=== PATIENT | male | born 2000 | race Caucasian/White ===

== ENCOUNTER 2018-07-17 12:14 | Emergency (ER) | payer OTHER ==
[2018-07-17 12:48] VITALS: BP 145/80; PULSE 99; TEMP 98.8; BMI 29.9
--- NOTE | 2018-07-17 14:48 | PDOC ---
History of Present Illness - General Chief Complaint: Rash Stated Complaint: ALLERGIC REACTION Time Seen by Provider: 07/17/18 14:31 History Source: Patient Exam Limitations: Clinical Condition - History of Present Illness Initial Comments: 07/17/18 14:50 Patient with no significant past medical history present with complaint of diffuse red rash and itching for over 2 weeks now. Patient reported rash started in the bilateral hands and has spread throughout the body. Patient did not take anything for symptoms. Patient denies any other symptoms. Timing/Duration: other (2 weeks) Past History - Past Medical History Allergies/Adverse Reactions: Allergies Allergy/AdvReac Type Severity Reaction Status Date / Time No Known Allergies Allergy Verified 06/18/12 16:38 Home Medications: Ambulatory Orders No Home Medications 0 dose .ROUTE UTDICT 06/18/12 Famotidine [Pepcid] 20 mg PO BID 5 Days #10 tablet 07/17/18 Hydrocortisone 2.5% Lotion [Hytone 2.5% Lotion -] 1 applic TP BID #1 bottle 09/30 predniSONE [Deltasone -] 20 mg PO BID 5 Days #10 tablet 07/17/18 COPD: No Thyroid Disease: No - Immunization History Immunization Up to Date: Yes - Suicide/Smoking/Psychosocial Hx Smoking Status: No Smoking History: Never smoked Number of Cigarettes Smoked Daily: 0 Hx Alcohol Use: No Drug/Substance Use Hx: No Review of Systems - Review of Systems Able to Perform ROS?: Yes Is the patient limited Armenian proficient: No Constitutional: No: Fever, Malaise, Weakness HEENTM: No: Blurred Vision, Recent change in vision Respiratory: No: Symptoms reported Cardiac (ROS): No: Symptoms Reported ABD/GI: No: Symptoms Reported Integumentary: Yes: Flushing (intermittent), Pruritus, Rash (global) All Other Systems: Reviewed and Negative *Physical Exam - Vital Signs Last Vital Signs Temp Pulse Resp BP Pulse Ox 98.8 F 99 H 16 145/80 98 07/17/18 12:46 07/17/18 12:46 07/17/18 12:46 07/17/18 12:46 07/17/18 12:46 - Physical Exam Comments: 07/17/18 14:52 GENERAL: Well developed, well nourished. Awake and alert. No acute distress. HEENT: Normocephalic, atraumatic. PERRLA, EOMI. No conjunctival pallor. Sclera are non-icteric. Moist mucous membranes. Oropharynx is clear. NECK: Supple. Full ROM. CARDIOVASCULAR: Regular rate and rhythm. No murmurs, rubs, or gallops. Distal pulses are 2+ and symmetric. PULMONARY: No evidence of respiratory distress. Lungs clear to auscultation bilaterally. No wheezing, rales or rhonchi. ABDOMINAL: Soft. Non-tender. Non-distended. No rebound or guarding. No organomegaly. Normoactive bowel sounds. MUSCULOSKELETAL Normal range of motion at all joints. EXTREMITIES: No cyanosis. No clubbing. No edema. SKIN: Diffuse erythematous rash all over the body without excoriations. Warm and dry. Normal capillary refill. NEUROLOGICAL: Alert, awake, appropriate. Gait is normal without ataxia. PSYCHIATRIC: Cooperative. Good eye contact. Appropriate mood General Appearance: Yes: Nourished, Appropriately Dressed. No: Apparent Distress Moderate Sedation - Procedure Monitoring Vital Signs: Procedure Monitoring Vital Signs Temperature 98.8 F 07/17/18 12:46 Pulse Rate 99 H 07/17/18 12:46 Respiratory Rate 16 07/17/18 12:46 Blood Pressure 145/80 07/17/18 12:46 O2 Sat by Pulse Oximetry (%) 98 07/17/18 12:46 Medical Decision Making - Medical Decision Making 07/17/18 14:54 Patient with no significant past medical history present with complaint of diffuse red rash and itching for over 2 weeks now. Patient reported rash started in the bilateral hands and has spread throughout the body. Patient did not take anything for symptoms. Patient with no significant past medical history present with complaint of diffuse red rash and itching for over 2 weeks now. Patient reported rash started in the bilateral hands and has spread throughout the body. Patient did not take anything for symptoms. *DC/Admit/Observation/Transfer Diagnosis at time of Disposition: Allergic dermatitis - Discharge Dispostion Disposition: HOME Condition at time of disposition: Stable Decision to Admit order: No - Prescriptions Prescriptions: Famotidine [Pepcid] 20 mg PO BID 5 Days #10 tablet Hydrocortisone 2.5% Lotion [Hytone 2.5% Lotion -] 1 applic TP BID #1 bottle predniSONE [Deltasone -] 20 mg PO BID 5 Days #10 tablet - Referrals Referrals: Mary Mcadams MD [Staff Physician] - - Patient Instructions Printed Discharge Instructions: Contact Dermatitis Additional Instructions: Take medications as prescribed. Follow-up referred to dermatology as soon as possible. - Post Discharge Activity Forms/Work/School Notes: Back to Work
== END 2018-07-17 14:57 | disposition home or self-care (01) ==
LOC: JERFT 12:14
DX: L23.9 Allergic contact dermatitis, unspecified cause (principal)
CPT/HCPCS: 99281-25

== ENCOUNTER 2018-07-30 11:47 | Observation (INO) | payer OTHER ==
[2018-07-30 11:56] VITALS: TEMP 97.8; BMI 26.6
--- NOTE | 2018-07-30 12:41 | PDOC ---
*Physical Exam - Vital Signs Last Vital Signs Temp Pulse Resp BP Pulse Ox 97.8 F 75 18 127/63 100 07/30/18 11:51 07/30/18 11:51 07/30/18 11:51 07/30/18 11:51 07/30/18 11:51 Medical Decision Making - Medical Decision Making 07/30/18 12:41 Pt seen by Midlevel Provider under my direct supervision Pt interviewed and examined Ancillary studies reviewed I agree with plan as outlined by Midlevel Provider *DC/Admit/Observation/Transfer - Discharge Dispostion Condition at time of disposition: Stable - Referrals - Patient Instructions - Post Discharge Activity
--- NOTE | 2018-07-30 13:02 | PDOC ---
History of Present Illness - General Chief Complaint: Allergic Reaction Stated Complaint: ALLERGIC REACTION Time Seen by Provider: 07/30/18 12:03 History Source: Patient Exam Limitations: No Limitations - History of Present Illness Initial Comments: 07/30/18 13:05 CHIEF COMPLAINT: Allergic reaction HISTORY OF PRESENT ILLNESS: This is a 18-year-old male with a history of asthma (no hospitalizations since childhood, on albuterol prn), and anxiety/depression (history of inpatient hospitalizations, was taking Zoloft and Seroquel but stopped 3 years ago, has not been symptomatic since). The patient was initially seen here on 07/17 for a rash. He reports that the rash began on the soles of his feet. He then noted it on the palms of his hands. The rash then became generalized. At that time, he did not have any respiratory or ENT involvement. He was seen here and started on hydrocortisone cream, low-dose prednisone, and famotidine. The rash has resolved. However yesterday, he began experiencing lip swelling and throat tightness. He reports that he had hoarse voice and was sent home from work because he was unable to speak clearly. He had difficulty breathing overnight. He denies any wheezing or shortness of breath at present. He took his prednisone and famotidine this morning. The patient denies any new medications, foods, or detergents. PCP: None Smoking: E-cigarettes Alcohol: Occasional Drugs: None Lives alone. Works as [employer]. REVIEW OF SYSTEMS: GENERAL/CONSTITUTIONAL: No fever or chills. No weakness. No weight change. HEAD, EYES, EARS, NOSE AND THROAT: Lip swelling, throat tightness, hoarse voice (improving). CARDIOVASCULAR: No chest pain or palpitations. RESPIRATORY: No cough, wheezing, or shortness of breath. Dyspnea overnight ( resolved). GASTROINTESTINAL: No nausea, vomiting, diarrhea or constipation. GENITOURINARY: No dysuria, frequency, or change in urination. MUSCULOSKELETAL: No joint or muscle swelling or pain. No neck or back pain. SKIN: No rash or easy bruising. NEUROLOGIC: No headache, vertigo, loss of consciousness, or loss of sensation. PSYCHIATRIC: "Emotional" at times, denies SI/HI/AH/VH. ENDOCRINE: No increased thirst. No abnormal weight change. HEMATOLOGIC/LYMPHATIC: No anemia, easy bleeding, or history of blood clots. ALLERGIC/IMMUNOLOGIC: See HPI. PHYSICAL EXAM: GENERAL: The patient is awake, alert, and fully oriented, in no acute distress. HEAD: Normal with no signs of trauma. ENT: Angioedema of lips, mild uvular edema. No tongue edema. No stridor. Able to swallow own secretions. Difficulty enunciating because of lip swelling, but no voice hoarseness. LUNGS: Clear to auscultation bilaterally. Normal excursion. No respiratory distress or use of accessory muscles. CV: RRR, S1/S2, no MRG. Cap refill < 2 sec. ABDOMEN: Soft, non-distended, non-tender. EXTREMITIES: Normal range of motion, no edema. NEUROLOGICAL: Normal speech, normal gait. CN II-XII grossly intact. PSYCH: Normal mood, normal affect. SKIN: Warm, dry, normal turgor, no rashes or lesions noted including palms/ soles. 07/30/18 13:27 Past History - Past Medical History Allergies/Adverse Reactions: Allergies Allergy/AdvReac Type Severity Reaction Status Date / Time No Known Allergies Allergy Verified 06/18/12 16:38 Home Medications: Ambulatory Orders No Home Medications 0 dose .ROUTE UTDICT 06/18/12 Famotidine [Pepcid] 20 mg PO BID 5 Days #10 tablet 07/17/18 Hydrocortisone 2.5% Lotion [Hytone 2.5% Lotion -] 1 applic TP BID #1 bottle 09/30 predniSONE [Deltasone -] 20 mg PO BID 5 Days #10 tablet 07/17/18 COPD: No Thyroid Disease: No - Surgical History Cholecystectomy: No - Immunization History Immunization Up to Date: Yes - Suicide/Smoking/Psychosocial Hx Smoking Status: No Smoking History: Never smoked Have you smoked in the past 12 months: No Number of Cigarettes Smoked Daily: 0 Information on smoking cessation initiated: No Hx Alcohol Use: No Drug/Substance Use Hx: No *Physical Exam - Vital Signs Last Vital Signs Temp Pulse Resp BP Pulse Ox 97.8 F 75 18 127/63 100 07/30/18 11:51 07/30/18 11:51 07/30/18 11:51 07/30/18 11:51 07/30/18 11:51 Moderate Sedation - Procedure Monitoring Vital Signs: Procedure Monitoring Vital Signs Temperature 97.8 F 07/30/18 11:51 Pulse Rate 75 07/30/18 11:51 Respiratory Rate 18 07/30/18 11:51 Blood Pressure 127/63 07/30/18 11:51 O2 Sat by Pulse Oximetry (%) 100 07/30/18 11:51 ED Treatment Course - LABORATORY CBC & Chemistry Diagram: 07/30/18 13:15 07/30/18 13:15 Medical Decision Making - Medical Decision Making 07/30/18 13:16 A/P: 18-year-old male on prednisone for ALLERGIC dermatitis, presenting with angioedema. Maintaining airway, however with obvious lip swelling and difficulty speaking. 1. Basic labs including CBC, CMP 2. IV Benadryl, Solu-Medrol, Pepcid 3. ENT evaluation - discussed with Dr. Horton who will see patient at 7pm 4. Place in short stay observation 07/30/18 18:28 Developed erythema and pruritis to bilat arms. Will give second dose benadryl. Mildly tachycardic at 108bpm - IV fluids ordered. *DC/Admit/Observation/Transfer Diagnosis at time of Disposition: Angioedema Qualifiers: Encounter type: initial encounter Qualified Code(s): T78.3XXA - Angioneurotic edema, initial encounter - Discharge Dispostion Condition at time of disposition: Guarded Decision to Admit order: Yes - Referrals - Patient Instructions - Post Discharge Activity
[2018-07-30] MEDS ORDERED: methylPREDNISolone NA SUCC 125 MG/2 ML VIAL IVPUSH ONE (13:04)
[2018-07-30] MEDS ORDERED: FAMOTIDINE 20 MG/50 ML IVPB 20 MG/50 ML MG IVPB ONE ×2 (13:04→13:27)
[2018-07-30] MEDS ORDERED: methylPREDNISolone NA SUCC 125 MG/2 ML VIAL ONE ×2 (13:27→13:28)
[2018-07-30 13:31] LABS: BASO % 0.1 % (0-2.0); EOS % 0.2 % (0-4.5); HEMATOCRIT 44.8 % (35.4-49); HEMOGLOBIN 15.6 GM/dL (11.7-16.9); LYMPH % 11.6 % (8-40); MCH 30.5 pg (25.7-33.7); MEAN CELL VOLUME 87.1 fl (80-96); MEAN PLT VOLUME 8.2 fl (7.5-11.1); MONO % 3.3 % (3.8-10.2); NEUT % 84.8 % (42.8-82.8); PLATELET COUNT 269 K/MM3 (134-434); RBC 5.14 M/mm3 (4.00-5.60); RDW 13.3 % (11.9-15.9); WHITE BLOOD COUNT 11.5 K/mm3 (4.0-10.0)
[2018-07-30 14:07] LABS: ALK PHOS 119 U/L (45-117); ANION GAP 5 MMOL/L (8-16); BILIRUBIN,TOTAL 0.5 mg/dL (0.2-1); BLOOD UREA NITROGEN 9 mg/dL (7-18); CALCIUM 9.2 mg/dL (8.5-10.1); CHLORIDE 103 mmol/L (98-107); CO2 29 mmol/L (21-32); CREATININE 0.6 mg/dL (0.55-1.3); GLUCOSE,RANDOM 96 mg/dL (74-106); POTASSIUM 3.8 mmol/L (3.5-5.1); SGOT/AST 14 U/L (15-37); SGPT/ALT 36 U/L (13-61); SODIUM 137 mmol/L (136-145); TOT PROT 7.8 g/dl (6.4-8.2)
[2018-07-30] MEDS ORDERED: SODIUM CHLORIDE 1,000 ML IV STA (18:23)
--- NOTE | 2018-07-30 19:31 | PDOC ---
*Physical Exam - Vital Signs Last Vital Signs Temp Pulse Resp BP Pulse Ox 97.8 F 107 H 18 127/63 97 07/30/18 11:51 07/30/18 18:14 07/30/18 18:14 07/30/18 18:14 07/30/18 18:14 - Physical Exam General Appearance: Yes: Appropriately Dressed. No: Apparent Distress HEENT: positive: Normal Voice, Other (angioedema present to lips. No tongue swelling. Eating without difficulty.) Neck: negative: Stridor Respiratory/Chest: positive: Lungs Clear, Normal Breath Sounds. negative: Respiratory Distress, Accessory Muscle Use Cardiovascular: positive: Regular Rhythm, Regular Rate. negative: Murmur ED Treatment Course - LABORATORY CBC & Chemistry Diagram: 07/30/18 13:15 07/30/18 13:15 - ADDITIONAL ORDERS Additional order review: Laboratory Results 07/30/18 13:15 Sodium 137 Potassium 3.8 Chloride 103 Carbon Dioxide 29 Anion Gap 5 L BUN 9 Creatinine 0.6 Creat Clearance w eGFR > 60 Random Glucose 96 Calcium 9.2 Total Bilirubin 0.5 AST 14 L ALT 36 Alkaline Phosphatase 119 H Total Protein 7.8 Albumin 4.0 07/30/18 13:15 RBC 5.14 MCV 87.1 MCHC 35.0 RDW 13.3 MPV 8.2 Neutrophils % 84.8 H Lymphocytes % 11.6 Monocytes % 3.3 L Eosinophils % 0.2 Basophils % 0.1 - Medications Given in the ED: ED Medications Discontinued Medications Generic Name Dose Route Start Last Admin Trade Name Wilsonq PRN Reason Stop Dose Admin Diphenhydramine HCl 25 mg 07/30/18 13:04 07/30/18 13:46 Benadryl Injection - IVPUSH 07/30/18 13:05 25 mg ONCE ONE Administration Diphenhydramine HCl 25 mg 07/30/18 18:29 07/30/18 18:36 Benadryl Injection - IVPUSH 07/30/18 18:30 25 mg ONCE ONE Administration Famotidine/Sodium Chloride 20 mg in 50 mls @ 100 mls/hr 07/30/18 13:04 14:02 Pepcid 20 Mg Premixed Ivpb - IVPB 07/30/18 13:33 100 mls/hr ONCE ONE Administration Sodium Chloride 1,000 mls @ 1,000 mls/hr 07/30/18 18:23 07/30/18 18:30 Normal Saline - IV 07/30/18 19:22 1,000 mls/hr ASDIR STA Administration Methylprednisolone Sodium Succinate 125 mg 07/30/18 13:04 07/30/18 13:46 Solu-Medrol - IVPUSH 07/30/18 13:05 125 mg ONCE ONE Administration Progress Note - Progress Note Progress Note: Received signout from nurse practitioner Frances. Briefly this is a 18-year-old male with history of asthma and anxiety with angioedema. Patient had a rash which started on 07/17 started on soles of his feet and palms of his hands which is now progressed to a generalized rash. Patient was started on hydrocortisone and prednisone began to experience low swelling and throat tightness starting on 07/29. Patient has received IV Benadryl, IV Solu-Medrol and IV Pepcid. Patient is currently pending ENT evaluation with Dr. Horton. Medical Decision Making - Medical Decision Making 07/30/18 20:09 Case has been discussed with Dr. Horton of otolaryngology who recommends discharge patient now with ENT follow-up in the next couple of weeks. Results of the exam is been discussed with the patient was verbalized understanding. Patient states he does not have a primary doctor so we'll give her referral for [facility]. I'll discharge the patient home with a course of steroids, antihistamines and an EpiPen. Patient given strict return precautions should he develop any oral swelling, difficulty breathing, change in voice again. I discussed the physical exam findings, ancillary test results and final diagnoses with the patient. I answered all of the patient's questions. The patient was satisfied with the care received and felt comfortable with the discharge plan and treatment plan. The patient will call their primary care physician within 24 hours to arrange follow-up and will return to the Emergency Department with any new, persistent or worsening symptoms. *DC/Admit/Observation/Transfer Diagnosis at time of Disposition: Angioedema Qualifiers: Encounter type: initial encounter Qualified Code(s): T78.3XXA - Angioneurotic edema, initial encounter - Discharge Dispostion Disposition: HOME Condition at time of disposition: Fair Decision to Admit order: No - Prescriptions Prescriptions: Diphenhydramine [Benadryl -] 50 mg PO BID #20 capsule Epinephrine [Epipen 2-Demetrio] 0.3 mg IJ ASDIR #1 kit predniSONE [Deltasone -] 40 mg PO DAILY #14 tablet - Referrals Referrals: Carlos Horton MD [Staff Physician] - Rafael Knox MD [Staff Physician] - - Patient Instructions Additional Instructions: Take prednisone 40 mg once a day for the next 7 days. Take Benadryl 50 mg twice a day as needed for itching. You've been given an EpiPen. Use immediately if he developed any facial swelling , shortness of breath, drooling, change in voice or difficulty swallowing. If you usually your EpiPen, go to the closest emergency department immediately for medical evaluation. You've been given a referral for Dr. Horton. Please follow-up within the next few weeks. He be given a referral for and onto is a primary doctor. Call to schedule appointment within the next week. Return to emergency department for any worsening symptoms or for any concerns. - Post Discharge Activity
--- NOTE | 2018-07-30 19:55 | CON.ENT ---
Consult Consult Specialty:: ENT Referred by:: Aneta Daniels Reason for Consultation:: angioedema - History of Present Illness Chief Complaint: lip swelling History of Present Illness: 18 yo M in usual state of good health until early to mid June, developed rash palms, soles, then trunk rx oral and topical steroids, someimprovement then in past few days had hives. yesterday developed rapidly progressive elling of lips and throat, trouble breathing and swallowing, brought to ER no unusual exposures, no URI, no unusual food ingestions. hx asthma, denies inhalant allergies or other food allergies since admission rx IV antihistamines and steroids, pr reports improvement in his symptoms. ate a large sandwich this afternoon. - History Source History Provided By: Patient, Medical Record Limitations to Obtaining History: No Limitations - Alcohol/Substance Use Hx Alcohol Use: No - Smoking History Smoking history: Never smoked Have you smoked in the past 12 months: No Aproximately how many cigarettes per day: 0 Home Medications - Allergies Allergies/Adverse Reactions: Allergies Allergy/AdvReac Type Severity Reaction Status Date / Time No Known Allergies Allergy Verified 06/18/12 16:38 - Home Medications Home Medications: Ambulatory Orders NK [No Known Home Medication] 07/30/18 Physical Exam-ENT Vital Signs: Vital Signs Temperature 97.8 F 07/30/18 11:51 Pulse Rate 107 H 07/30/18 18:14 Respiratory Rate 18 07/30/18 18:14 Blood Pressure 127/63 07/30/18 18:14 O2 Sat by Pulse Oximetry (%) 97 07/30/18 18:14 Constitutional: Yes: Well Nourished, No Distress, Calm Head: Yes: WNL Face: Yes: WNL Eyes: Yes: WNL Nose: Yes: WNL Oral/Pharynx: Yes: WNL Outer Ear: Yes: WNL Ear Canal: Yes: WNL Tympanic Membrane: Yes: WNL Neck: Yes: WNL Respiratory: Yes: WNL Problem List - Problems (1) Angioedema Assessment/Plan: acute onset angioedema. no identifiable trigger, first episode improving with medical treatment presently no problems with swallowing or breathing, ate a large sandwich this afternoon. Recommend: ok to discharge home when meets ED discharge criteria oral antihistamines, steroids to office as outpatient for further evaluation and management advise workup for angioedema and evaluation/management of asthma. Thank you for consultation, Carlos Horton MD Code(s): T78.3XXA - ANGIONEUROTIC EDEMA, INITIAL ENCOUNTER Qualifiers: Encounter type: initial encounter Qualified Code(s): T78.3XXA - Angioneurotic edema, initial encounter
[2018-07-30 20:51] VITALS: BP 126/78; PULSE 89
== END 2018-07-30 20:50 | disposition home or self-care (01) ==
LOC: JER 11:47 → JERBED 13:38 → UNDOADMOB 13:38
PROVIDERS: ADMIT Internal Medicine; ATTEND Internal Medicine
PROC: 3E0333Z Introduction of Anti-inflammatory into Peripheral Vein, Percutaneous Approach (ICD-10-PCS; principal; 2018-07-30)
PROC: 3E0337Z Introduction of Electrolytic and Water Balance Substance into Peripheral Vein, Percutaneous Approach (ICD-10-PCS; 2018-07-30)
PROC: 3E033GC Introduction of Other Therapeutic Substance into Peripheral Vein, Percutaneous Approach (ICD-10-PCS; 2018-07-30)
DX: T78.3XXA Angioneurotic edema, initial encounter (principal); R00.0 Tachycardia, unspecified; J45.909 Unspecified asthma, uncomplicated
CPT/HCPCS: 36415; 80053; 85025; 86593; 96361; 96365; 96375; 96376; 99283-25; G0378; J7030

== ENCOUNTER 2018-08-12 12:09 | Emergency (ER) | payer OTHER ==
[2018-08-12 12:18] VITALS: BP 148/76; PULSE 97; TEMP 98.3; BMI 26.6
[2018-08-12] MEDS ORDERED: SODIUM CHLORIDE 1,000 ML IV STA (12:32)
[2018-08-12] MEDS ORDERED: METOCLOPRAMIDE HCL INJECTION 10 MG/2 ML VIAL IVPB ONE (12:32)
--- NOTE | 2018-08-12 12:34 | PDOC ---
History of Present Illness - General Chief Complaint: Nausea/Vomiting Stated Complaint: HEADACHE/WEAKNESS Time Seen by Provider: 08/12/18 12:26 History Source: Patient - History of Present Illness Timing/Duration: reports: other Past History - Past Medical History Allergies/Adverse Reactions: Allergies Allergy/AdvReac Type Severity Reaction Status Date / Time No Known Allergies Allergy Verified 08/12/18 12:15 Home Medications: Ambulatory Orders Ondansetron HCl [Zofran] 4 mg PO Q8H PRN #12 tablet 08/12/18 COPD: No Thyroid Disease: No - Surgical History Cholecystectomy: No - Immunization History Immunization Up to Date: Yes - Suicide/Smoking/Psychosocial Hx Smoking Status: No Smoking History: Never smoked Have you smoked in the past 12 months: No Number of Cigarettes Smoked Daily: 0 Hx Alcohol Use: No Drug/Substance Use Hx: No Review of Systems - Review of Systems Constitutional: Yes: Fever, Malaise HEENTM: No: Ear Pain, Throat Pain Respiratory: Yes: Cough. No: Shortness of Breath Cardiac (ROS): No: Chest Pain ABD/GI: Yes: Nausea, Vomiting, Abdominal cramping. No: Diarrhea : No: Dysuria *Physical Exam - Vital Signs Last Vital Signs Temp Pulse Resp BP Pulse Ox 98.3 F 97 H 16 148/76 96 08/12/18 12:15 08/12/18 12:15 08/12/18 12:15 08/12/18 12:15 08/12/18 12:15 - Physical Exam General Appearance: Yes: Appropriately Dressed. No: Apparent Distress HEENT: positive: Normal ENT Inspection, Normal Voice. negative: Scleral Icterus (R), Scleral Icterus (L) Neck: positive: Supple. negative: Tender, Lymphadenopathy (R), Lymphadenopathy (L) Respiratory/Chest: positive: Lungs Clear, Normal Breath Sounds. negative: Respiratory Distress, Wheezing Cardiovascular: positive: Regular Rate, S1, S2 Gastrointestinal/Abdominal: positive: Soft. negative: Tender Integumentary: positive: Dry, Warm Neurologic: positive: Fully Oriented, Alert, Normal Mood/Affect Moderate Sedation - Procedure Monitoring Vital Signs: Procedure Monitoring Vital Signs Temperature 98.3 F 08/12/18 12:15 Pulse Rate 97 H 08/12/18 12:15 Respiratory Rate 16 08/12/18 12:15 Blood Pressure 148/76 08/12/18 12:15 O2 Sat by Pulse Oximetry (%) 96 08/12/18 12:15 ED Treatment Course - LABORATORY CBC & Chemistry Diagram: 08/12/18 12:40 08/12/18 12:40 Medical Decision Making - Medical Decision Making 08/12/18 12:27 18 yo M, h/o asthma, here w/ malaise w/ MENDIETA, cough, n/v and abd pain x 3 days. Had fever of 101 F, 3 days ago. No diarrhea, sore throat, ear pain, sob, chest tightness, wheezing, neck pain, photophobia or rash. States he has not been able to tolerate po and now feels week. [place] like passing out at work this am and was sent to the ED by his boss per pt. No sick contacts or recent travel See exam M/l viral syndrome R/o flu No e/o meningitis -supportive tx in ED -labs -reassess 08/12/18 14:01 Labs unremarkable. Patient improved and able to peg po. Will dc with supportive treatment and PMD follow-up as needed *DC/Admit/Observation/Transfer Diagnosis at time of Disposition: Viral syndrome - Discharge Dispostion Disposition: HOME Condition at time of disposition: Improved - Prescriptions Prescriptions: Ondansetron HCl [Zofran] 4 mg PO Q8H PRN #12 tablet PRN Reason: Nausea And/Or Vomiting - Referrals - Patient Instructions Printed Discharge Instructions: DI for Viral Syndrome Additional Instructions: The cause of your symptoms are most likely viral. Your flu test and blood tests were normal here. Rest, drink plenty of fluids and take Zofran as needed for nausea, vomiting. - Post Discharge Activity Forms/Work/School Notes: Back to Work
[2018-08-12] MEDS ORDERED: METOCLOPRAMIDE HCL INJECTION 10 MG/2 ML VIAL ONE (12:42)
[2018-08-12 13:11] LABS: BASO % 0.2 % (0-2.0); EOS % 0.9 % (0-4.5); HEMATOCRIT 47.5 % (35.4-49); HEMOGLOBIN 16.6 GM/dL (11.7-16.9); LYMPH % 15.8 % (8-40); MCH 30.7 pg (25.7-33.7); MCHC 34.9 g/dl (32.0-35.9); MEAN PLT VOLUME 8.2 fl (7.5-11.1); MONO % 4.2 % (3.8-10.2); NEUT % 78.9 % (42.8-82.8); PLATELET COUNT 322 K/MM3 (134-434); RDW 12.9 % (11.9-15.9); WHITE BLOOD COUNT 11.2 K/mm3 (4.0-10.0)
[2018-08-12 13:55] LABS: ALBUMIN 4.4 g/dl (3.4-5.0); ALK PHOS 113 U/L (45-117); ANION GAP 5 MMOL/L (8-16); BILIRUBIN,TOTAL 0.7 mg/dL (0.2-1); BLOOD UREA NITROGEN 12 mg/dL (7-18); CHLORIDE 106 mmol/L (98-107); CO2 27 mmol/L (21-32); CREATININE 0.7 mg/dL (0.55-1.3); GLUCOSE,RANDOM 92 mg/dL (74-106); SGOT/AST 15 U/L (15-37); SGPT/ALT 37 U/L (13-61); SODIUM 139 mmol/L (136-145); TOT PROT 8.2 g/dl (6.4-8.2)
== END 2018-08-12 14:11 | disposition home or self-care (01) ==
LOC: JER 12:09
PROC: 3E033GC Introduction of Other Therapeutic Substance into Peripheral Vein, Percutaneous Approach (ICD-10-PCS; principal; 2018-08-12)
DX: B34.9 Viral infection, unspecified (principal)
CPT/HCPCS: 36415; 80053; 85025; 87804; 96374; 99282-25; J7030

== ENCOUNTER 2019-08-13 15:37 | Emergency (ER) | payer OTHER ==
[2019-08-13] MEDS ORDERED: SODIUM CHLORIDE 1,000 ML IV STA ×2 (15:56→18:05)
[2019-08-13] MEDS ORDERED: ONDANSETRON 4 MG/2 ML VIAL IVPUSH ONE (15:56)
--- NOTE | 2019-08-13 15:56 | PDOC ---
Rapid Medical Evaluation Time Seen by Provider: 08/13/19 15:53 Medical Evaluation: Allergies Allergy/AdvReac Type Severity Reaction Status Date / Time No Known Allergies Allergy Verified 08/12/18 12:15 08/13/19 15:53 CC: "I haven't eaten in 2 weeks" Pt is a 19 y/o male who presents to the ED stating he has not eaten for 2 weeks and every time he tries he vomits. He is sometimes able to keep water down. He states fevers come and go. Brief exam: moist oral mucosa, RUQ abdominal pain Orders: RUQ US, labs, zofran, fluids. To ED for further evaluation Discharge Disposition - Diagnosis RUQ abdominal pain - Referrals - Patient Instructions - Post Discharge Activity
[2019-08-13 15:58] VITALS: BMI 30.2
[2019-08-13] MEDS ORDERED: ONDANSETRON 4 MG/2 ML VIAL ONE (16:30)
[2019-08-13 16:34] LABS: BASO % 0.2 % (0-2.0); EOS % 3.1 % (0-4.5); HEMATOCRIT 45.1 % (35.4-49); HEMOGLOBIN 15.5 GM/dL (11.7-16.9); LYMPH % 31.2 % (8-40); MCH 30.2 pg (25.7-33.7); MCHC 34.3 g/dl (32.0-35.9); MEAN PLT VOLUME 8.4 fl (7.5-11.1); MONO % 9.7 % (3.8-10.2); NEUT % 55.8 % (42.8-82.8); PLATELET COUNT 259 K/MM3 (134-434); RBC 5.13 M/mm3 (4.00-5.60); RDW 13.1 % (11.9-15.9); WHITE BLOOD COUNT 7.4 K/mm3 (4.0-10.0)
[2019-08-13 17:20] LABS: BILIRUBIN,TOTAL 0.5 mg/dL (0.2-1); BLOOD UREA NITROGEN 10.4 mg/dL (7-18); CALCIUM 9.2 mg/dL (8.5-10.1); CREATININE 0.7 mg/dL (0.55-1.3); POTASSIUM 3.9 mmol/L (3.5-5.1); TOT PROT 7.6 g/dl (6.4-8.2)
[2019-08-13 18:59] VITALS: BP 111/66; PULSE 90; TEMP 97.7
[2019-08-13 19:18] LABS: URINE APPEARANCE CLEAR; URINE BILIRUBIN NEGATIVE (NEGATIVE); URINE COLOR YELLOW; URINE GLUCOSE (UA) NEGATIVE (NEGATIVE); URINE KETONE NEGATIVE (NEGATIVE); URINE LEUK ESTERASE NEGATIVE (NEGATIVE); URINE NITRITE NEGATIVE (NEGATIVE); URINE PROTEIN NEGATIVE (NEGATIVE)
--- NOTE | 2019-08-13 19:35 | PDOC ---
History of Present Illness - General Chief Complaint: Pain, Acute Stated Complaint: COUGHING UP BLOOD Time Seen by Provider: 08/13/19 15:53 History Source: Patient Exam Limitations: No Limitations - History of Present Illness Travel History: No Initial Comments: 08/13/19 19:37 HISTORY OF PRESENT ILLNESS: 19-year-old otherwise healthy male presents emergency department for evaluation of inability to eat for the past 2 weeks. Patient also endorses having one episode where he coughed he had some blood- streaked sputum. Coughing started today. He reports over the past 2 weeks he has not had any bilious or bloody vomiting but every time he eats after 5 minutes he has vomiting. He does not experience any nausea. He is able to drink liquids without difficulty. He reports having some right upper quadrant pain which is constant. He reports the pain waxes and wanes and is currently at a 3/10. He denies any headaches, chest pain, shortness of breath. No recent travel or sick contacts. PAST MEDICAL HISTORY: Denies past medical history SURGICAL HISTORY: Denies ALLERGIES: No known drug allergies REVIEW OF SYSTEMS General/Constitutional: Denies fever or chills. Denies weakness, weight change. HEENT: Denies change in vision. Denies ear pain or discharge. Denies sore throat. Cardiovascular: Denies chest pain or shortness of breath. Respiratory: See HPI Gastrointestinal: See HPI Genitourinary: Denies dysuria, frequency, or change in urination. Musculoskeletal: Denies joint or muscle swelling or pain. Denies neck or back pain. Skin and breasts: Denies rash or easy bruising. Neurologic: Denies headache, vertigo, loss of consciousness, or loss of sensation. Psychiatric: Denies depression or anxiety. Endocrine: Denies increased thirst. Denies abnormal weight change. Hematologic/Lymphatic: Denies anemia, easy bleeding, or history of blood clots. Allergic/Immunologic: Denies hives or skin allergy. Denies latex allergy. PHYSICAL EXAM General Appearance: Well-appearing, appropriately dressed. No apparent distress , no intoxication. HEENT: EOMI, PERRLA, normal ENT inspection, normal voice, TMs normal, pharynx normal. No conjunctival pallor. No photophobia, scleral icterus. Neck: Supple. Trachea midline. No tenderness, rigidity, carotid bruit, stridor , lymphadenopathy, or thyromegaly. Respiratory/Chest: Lungs CTAB. No shortness of breath, chest tenderness, respiratory distress, accessory muscle use. No crackles, rales, rhonchi, stridor , wheezing, dullness Cardiovascular: RRR. S1, S2. No JVD, murmur, bradycardia, tachycardia. Vascular Pulses: Dorsalis-Pedis (R): 2+, Dorsalis-Pedis (L): 2+ Gastrointestinal/Abdominal: Normal bowel sounds. Abdomen soft, non-distended. No tenderness or rebound tenderness. No organomegaly, pulsatile mass, guarding, hernia, hepatomegaly, splenomegaly. Lymphatic: No adenopathy, tenderness. Musculoskeletal/Extremities: Normal inspection. FROM of all extremities, normal capillary refill. Pelvis Stable. No CVA tenderness. No tenderness to extremities, pedal edema, swelling, erythema or deformity. Integumentary: Appropriate color, dry, warm. No cyanosis, erythema, jaundice or rash Neurologic: technical associate II-XII intact. Fully oriented, alert. Appropriate mood/affect. Motor strength 5/5. No appreciable EOM palsy, facial droop or sensory deficit. Past History - Past Medical History Allergies/Adverse Reactions: Allergies Allergy/AdvReac Type Severity Reaction Status Date / Time No Known Allergies Allergy Verified 08/12/18 12:15 Home Medications: Ambulatory Orders Ondansetron [Zofran -] 4 mg PO TID #21 tablet 08/13/19 COPD: No Thyroid Disease: No - Surgical History Cholecystectomy: No - Immunization History Immunization Up to Date: Yes - Psycho Social/Smoking Cessation Hx Smoking Status: No Smoking History: Never smoked Have you smoked in the past 12 months: No Number of Cigarettes Smoked Daily: 0 Hx Alcohol Use: No Drug/Substance Use Hx: No *Physical Exam - Vital Signs Last Vital Signs Temp Pulse Resp BP Pulse Ox 97.7 F 90 12 111/66 100 08/13/19 18:57 08/13/19 18:57 08/13/19 18:57 08/13/19 18:57 08/13/19 18:57 ED Treatment Course - LABORATORY CBC & Chemistry Diagram: 08/13/19 16:07 08/13/19 16:07 - ADDITIONAL ORDERS Additional order review: Laboratory Results 08/13/19 08/13/19 18:10 16:07 Sodium 139 Potassium 3.9 Chloride 106 Carbon Dioxide 27 Anion Gap 6 L BUN 10.4 Creatinine 0.7 Est GFR (CKD-EPI)AfAm 156.35 Est GFR (CKD-EPI)NonAf 134.90 Random Glucose 91 Calcium 9.2 Total Bilirubin 0.5 AST 15 ALT 40 Alkaline Phosphatase 118 H Total Protein 7.6 Albumin 4.0 Lipase 109 Urine Color Yellow Urine Appearance Clear Urine pH 6.0 Ur Specific Mark 1.023 Urine Protein Negative Urine Glucose (UA) Negative Urine Ketones Negative Urine Blood Negative Urine Nitrite Negative Urine Bilirubin Negative Urine Urobilinogen 1.0 Ur Leukocyte Esterase Negative 08/13/19 16:07 RBC 5.13 MCV 88.0 MCHC 34.3 RDW 13.1 MPV 8.4 Neutrophils % 55.8 D Lymphocytes % 31.2 D Monocytes % 9.7 D Eosinophils % 3.1 D Basophils % 0.2 - RADIOLOGY Radiology Studies Ordered: Category Date Time Status CHEST PA & LAT [RAD] Stat Radiology 08/13/19 18:05 Taken - Medications Given in the ED: ED Medications Discontinued Medications Generic Name Dose Route Start Last Admin Trade Name Freq PRN Reason Stop Dose Admin Sodium Chloride 1,000 mls @ 1,000 mls/hr 08/13/19 15:56 08/13/19 16:45 Normal Saline - IV 08/13/19 16:55 1,000 mls/hr ASDIR STA Administration Sodium Chloride 1,000 mls @ 1,000 mls/hr 08/13/19 18:05 08/13/19 18:17 Normal Saline - IV 08/13/19 19:04 1,000 mls/hr ASDIR STA Administration Ondansetron HCl 4 mg 08/13/19 15:56 08/13/19 16:45 Zofran Injection IVPUSH 08/13/19 15:57 4 mg ONCE ONE Administration Medical Decision Making - Medical Decision Making 08/13/19 19:39 A/P: 19-year-old male with right upper quadrant pain and inability to tolerate food over the past 2 weeks Physical exam is within normal limits Laboratory testing performed at our me are unremarkable. Right upper quadrant ultrasound is read by Dr. Claudio: No acute findings present. Chest x-ray as read by me: Angle sharp. Cardiac silhouette is within normal limits. No infiltrates or consolidations are present. P.o. trial Reassess 08/13/19 20:12 Patient able to tolerate sandwich and juice. Does not feel nauseous and has held the food down for more than 20 minutes. Discharge home Discharge - Discharge Information Problems reviewed: Yes Clinical Impression/Diagnosis: RUQ abdominal pain Condition: Fair Disposition: HOME - Admission No - Additional Discharge Information Prescriptions: Ondansetron [Zofran -] 4 mg PO TID #21 tablet - Follow up/Referral - Patient Discharge Instructions Additional Instructions: Your ultrasound today was unremarkable. Your chest x-ray today was normal. Laboratory testing is normal. Take Zofran 4 mg 3 times a day as needed for nausea and/or vomiting. It is important that you follow-up with your primary doctor for reevaluation of your symptoms. Return to the emergency department for fevers, chills, worsening pain, inability to drink liquids including water or for any other concerns. Thank you very much for choosing us to provide your emergent healthcare needs. - Post Discharge Activity
== END 2019-08-13 20:20 | disposition home or self-care (01) ==
LOC: JER 15:37
PROC: 3E0337Z Introduction of Electrolytic and Water Balance Substance into Peripheral Vein, Percutaneous Approach (ICD-10-PCS; principal; 2019-08-13)
PROC: 3E033GC Introduction of Other Therapeutic Substance into Peripheral Vein, Percutaneous Approach (ICD-10-PCS; 2019-08-13)
DX: R10.11 Right upper quadrant pain (principal)
CPT/HCPCS: 36415; 71046-TC-FY; 76705-TC; 80053; 81003; 83690; 85025; 99283-25; J7030

== ENCOUNTER 2019-09-24 14:32 | Emergency (ER) | payer OTHER ==
--- NOTE | 2019-09-24 14:43 | PDOC ---
Rapid Medical Evaluation Time Seen by Provider: 09/24/19 14:38 Medical Evaluation: Allergies Allergy/AdvReac Type Severity Reaction Status Date / Time No Known Allergies Allergy Verified 08/12/18 12:15 09/24/19 14:40 Pt c/o: 102.0 yesterday, no meds taken, hx asthma, + wheezing, does not have an inhaler Pt on brief exam: lcta, vss pt ordered for:none pt to proceed to the ED 09/24/19 14:43 Discharge Disposition - Diagnosis Wheezing - Referrals - Patient Instructions - Post Discharge Activity
[2019-09-24 14:47] VITALS: BP 133/77; PULSE 91; TEMP 98.4; BMI 30.5
[2019-09-24] MEDS ORDERED: ACETAMINOPHEN 325 MG TABLET (FP) PO ONE (16:25)
[2019-09-24] MEDS ORDERED: ALBUTEROL SO4 0.083% IH SOL 2.5 MG/3 ML VIAL.NEB. NEB ONE (16:25)
--- NOTE | 2019-09-24 16:25 | PDOC ---
History of Present Illness - General Chief Complaint: Cold Symptoms Stated Complaint: ASTHMA Time Seen by Provider: 09/24/19 14:38 History Source: Patient - History of Present Illness Initial Comments: 09/24/19 17:07 19-year-old male complaining of cough, exacerbation of asthma and one episode of fever yesterday.. Denies nausea, vomiting, diarrhea, abdominal pain Past medical history of asthma 09/24/19 17:10 denies sick contacts, exposure to cornovirus + patient, recent travel Past History - Past Medical History Allergies/Adverse Reactions: Allergies Allergy/AdvReac Type Severity Reaction Status Date / Time No Known Allergies Allergy Verified 09/24/19 14:47 Home Medications: Ambulatory Orders Ondansetron [Zofran -] 4 mg PO TID #21 tablet 08/13/19 Albuterol Sulfate Inhaler - [Ventolin HFA Inhaler -] 1 - 2 inh PO Q4H PRN #1 inhaler 09/24/19 predniSONE [Deltasone -] 40 mg PO UTDICT #10 tablet 09/24/19 COPD: No Thyroid Disease: No - Surgical History Cholecystectomy: No - Immunization History Immunization Up to Date: Yes - Psycho Social/Smoking Cessation Hx Smoking Status: No Smoking History: Never smoked Have you smoked in the past 12 months: No Number of Cigarettes Smoked Daily: 0 Hx Alcohol Use: No Drug/Substance Use Hx: No Review of Systems - Review of Systems Able to Perform ROS?: Yes Is the patient limited Lao proficient: No Respiratory: Yes: Cough *Physical Exam - Vital Signs Last Vital Signs Temp Pulse Resp BP Pulse Ox 98.4 F 91 H 20 133/77 99 09/24/19 14:45 09/24/19 14:45 09/24/19 14:45 09/24/19 14:45 09/24/19 14:45 - Physical Exam General Appearance: Yes: Appropriately Dressed Respiratory/Chest: positive: Wheezing (end expiratory wheezing). negative: Respiratory Distress, Accessory Muscle Use Cardiovascular: positive: Regular Rhythm, Regular Rate ED Progress Note - Progress Note Progress Note: 09/24/19 18:02 A: Asthma P: chest xray duoneb prednisone Discharge - Discharge Information Problems reviewed: Yes Clinical Impression/Diagnosis: Asthma Qualifiers: Asthma severity: mild Asthma persistence: unspecified Asthma complication type: unspecified Qualified Code(s): J45.909 - Unspecified asthma, uncomplicated Disposition: HOME - Additional Discharge Information Prescriptions: predniSONE [Deltasone -] 40 mg PO UTDICT #10 tablet Albuterol Sulfate Inhaler - [Ventolin HFA Inhaler -] 1 - 2 inh PO Q4H PRN #1 inhaler PRN Reason: Asthma - Follow up/Referral - Patient Discharge Instructions Patient Printed Discharge Instructions: DI for Viral Upper Respiratory In fection -- Adult Additional Instructions: Use albuterol every 4 hours as needed for cough or wheezing. Use prednisone as prescribed Follow-up with your primary doctor as soon as possible. Return to the ER if symptoms are worse. Covid-19 Symptoms and Knowing When to Stay Home and Return to Work The following is the most recent guidance from our Infection Prevention and Control team on the symptoms and duration of Covid-19, along with when to stay home from work, when you may return, and what procedures to follow when you are ready to come back. PLease call [facility] : [facility] CORONAVIRUS HOTLINE: What are the most common symptoms of Covid-19? - Muscle aches - Loss of energy and appetite - Persistent cough - Low grade fever lasting 24 hours or more, causing the person to feel feverish with chills If I have Covid-19, how long can I expect to feel sick? - Typically one week. - The majority of individuals feel better in 5 to 7 days with rest and over-the- counter cold and flu medications. How does illness progress in cases of Covid-19? - A few individuals progress to pneumonia (infection of the lungs) and/or pneumonitis (inflammation of the lungs). - Pneumonia/pneumonitis causes shortness of breath, worsening cough and in most cases, fever. - Individuals with the symptoms of Covid-19 who develop a worsening cough and shortness of breath must seek care quickly. If Im concerned about my symptoms or feel unwell, when must I stay home from work/ school? If you have muscle aches, cough, fatigue and low-grade fever, do not go to work/ school - Post Discharge Activity Work/Back to School Note: Back to Work
[2019-09-24] MEDS ORDERED: ACETAMINOPHEN 325 MG TABLET (FP) ONE (16:27)
== END 2019-09-24 17:26 | disposition home or self-care (01) ==
LOC: JERFT 14:32
PROC: 3E0F7GC Introduction of Other Therapeutic Substance into Respiratory Tract, Via Natural or Artificial Opening (ICD-10-PCS; principal; 2019-09-24)
DX: J45.909 Unspecified asthma, uncomplicated (principal)
CPT/HCPCS: 71046-TC-FY; 99283-25

== ENCOUNTER 2020-08-17 15:04 | Emergency (ER) | payer OTHER ==
[2020-08-17 15:19] VITALS: BP 115/73; PULSE 98; TEMP 99; BMI 28.7
[2020-08-17] MEDS ORDERED: predniSONE 20 MG TABLET (UD) PO ONE (15:29)
[2020-08-17] MEDS ORDERED: predniSONE 20 MG TABLET (UD) ONE (15:32)
[2020-08-17] MEDS ORDERED: ALBUTEROL SO4 HFA INHALER IH ONE (15:32)
[2020-08-17] MEDS ORDERED: ALBUTEROL SO4 HFA INHALER IH PRN (15:37)
[2020-08-17] MEDS ORDERED: ALBUTEROL SO4 HFA INHALER IH SCH (18:00)
== END 2020-08-17 15:42 | disposition home or self-care (01) ==
LOC: JERFT 15:04
DX: J45.21 Mild intermittent asthma with (acute) exacerbation (principal)
CPT/HCPCS: 99283-25

== ENCOUNTER 2020-12-25 21:46 | Emergency (ER) | payer OTHER ==
[2020-12-25 21:54] VITALS: BMI 29.5
[2020-12-25] MEDS ORDERED: IBUPROFEN 600 MG TABLET (FP) PO ONE ×2 (22:12→22:28)
[2020-12-25] MEDS ORDERED: CEFTRIAXONE 1 GM in DEXTROSE 5%-WATER - 50 ML IVPB ONE (22:12)
[2020-12-25] MEDS ORDERED: AZITHROMYCIN IVPB 500 MG in DEXTROSE 5%-WATER - 250 ML IVPB ONE (22:12)
[2020-12-25] MEDS ORDERED: ACETAMINOPHEN 325 MG TABLET (FP) PO ONE (22:13)
[2020-12-25] MEDS ORDERED: LACTATED RINGERS SOLUTION 1000 ML INFUS.BAG IV ONE (22:13)
[2020-12-25] MEDS ORDERED: CEFTRIAXONE 1 GM/50 ML BAG ONE (22:28)
[2020-12-25] MEDS ORDERED: ALBUTEROL SO4 2.5/IPRATROPIUM 0.5 INH SOL 3 ML VIAL.NEB. NEB ONE (22:28)
[2020-12-25] MEDS ORDERED: AZITHROMYCIN IVPB 500 MG/250 ML BAG IVPB ONE (22:29)
[2020-12-25 22:31] LABS: BASO % 0.2 % (0-2.0); EOS % 1.4 % (0-4.5); HEMATOCRIT 49.2 % (35.4-49); HEMOGLOBIN 16.8 GM/dL (11.7-16.9); LYMPH % 10.6 % (8-40); MCHC 34.1 g/dl (32.0-35.9); MEAN PLT VOLUME 8.4 fl (7.5-11.1); MONO % 7.6 % (3.8-10.2); NEUT % 80.2 % (42.8-82.8); PLATELET COUNT 244 K/MM3 (134-434); RBC 5.58 M/mm3 (4.00-5.60); RDW 13.4 % (11.9-15.9); WHITE BLOOD COUNT 13.1 K/mm3 (4.0-10.0)
[2020-12-25] MEDS ORDERED: DEXAMETHASONE SOD PHOSPHATE 10 MG/1 ML VIAL IVPUSH ONE (22:33)
[2020-12-25] MEDS: ALBUTEROL SO4 2.5/IPRATROPIUM 0.5 INH SOL 3 ML VIAL.NEB. NEB SCH ×4 (22:47→23:17)
[2020-12-25 22:48] LABS: CALCIUM 9.2 mg/dL (8.5-10.1)
[2020-12-25 22:49] LABS: BLOOD UREA NITROGEN 9.5 mg/dL (7-18)
[2020-12-25] MEDS ORDERED: DEXAMETHASONE SOD PHOSPHATE 10 MG/1 ML VIAL ONE (22:50)
[2020-12-25 22:52] LABS: CREATININE 0.7 mg/dL (0.55-1.3)
[2020-12-25 23:53] VITALS: BP 114/70; PULSE 125; TEMP 98.9
== END 2020-12-26 00:09 | disposition home or self-care (01) ==
LOC: JER 21:46
PROC: 3E03329 Introduction of Other Anti-infective into Peripheral Vein, Percutaneous Approach (ICD-10-PCS; principal; 2020-12-25)
PROC: 3E0F7GC Introduction of Other Therapeutic Substance into Respiratory Tract, Via Natural or Artificial Opening (ICD-10-PCS; 2020-12-25)
PROC: 3E033NZ Introduction of Analgesics, Hypnotics, Sedatives into Peripheral Vein, Percutaneous Approach (ICD-10-PCS; 2020-12-25)
DX: J45.901 Unspecified asthma with (acute) exacerbation (principal)
CPT/HCPCS: 36415; 71046-TC-FY; 80048; 85025; 87804; 99285-25; C9803; J1100; U0003; U0005

== ENCOUNTER 2021-07-06 14:16 | Emergency (ER) | payer OTHER ==
[2021-07-06 14:58] VITALS: BMI 30.2
[2021-07-06] MEDS ORDERED: ALBUTEROL SO4 2.5/IPRATROPIUM 0.5 INH SOL 3 ML VIAL.NEB. NEB ONE ×2 (16:39→16:52)
[2021-07-06] MEDS ORDERED: IBUPROFEN 600 MG TABLET (FP) PO ONE (16:39)
[2021-07-06] MEDS ORDERED: ACETAMINOPHEN 500 MG TABLET (FP) PO ONE (16:39)
[2021-07-06] MEDS ORDERED: predniSONE 20 MG TABLET (UD) PO ONE (16:39)
[2021-07-06] MEDS ORDERED: predniSONE 20 MG TABLET (UD) ONE (16:51)
[2021-07-06] MEDS ORDERED: IBUPROFEN 400 MG TABLET (FP) PO ONE (16:52)
[2021-07-06] MEDS ORDERED: ACETAMINOPHEN 325 MG TABLET (FP) ONE (16:52)
[2021-07-06 18:36] VITALS: BP 138/78; PULSE 87; TEMP 98.8
== END 2021-07-06 18:56 | disposition home or self-care (01) ==
LOC: JER 14:16
PROC: 3E0F7GC Introduction of Other Therapeutic Substance into Respiratory Tract, Via Natural or Artificial Opening (ICD-10-PCS; principal; 2021-07-06)
DX: R05.9 Cough, unspecified (principal)
CPT/HCPCS: 71046-TC-FY; 87804; 99284-25; C9803; U0003; U0005

== ENCOUNTER 2021-12-08 16:41 | Emergency (ER) | payer OTHER ==
[2021-12-08 17:00] VITALS: TEMP 98; BMI 30.2
[2021-12-08] MEDS ORDERED: ONDANSETRON 4 MG/2 ML VIAL IVPUSH ONE (17:10)
[2021-12-08] MEDS ORDERED: SODIUM CHLORIDE 1,000 ML IV STA (17:10)
[2021-12-08] MEDS ORDERED: ONDANSETRON 4 MG/2 ML VIAL ONE (17:55)
[2021-12-08] MEDS ORDERED: ALBUTEROL SO4 2.5/IPRATROPIUM 0.5 INH SOL 3 ML VIAL.NEB. NEB ONE ×2 (18:30→18:57)
[2021-12-08 19:37] LABS: EPI CELLS 7 /uL (0-25.1); HYALINE CASTS 2 /uL (0-3.1); PH,URINE 5.5 (5.0-8.0); URINE APPEARANCE CLEAR; URINE BACTERIA 9 /uL (0-1359); URINE BILIRUBIN NEGATIVE (NEGATIVE); URINE COLOR YELLOW; URINE GLUCOSE (UA) NEGATIVE (NEGATIVE); URINE KETONE TRACE (NEGATIVE); URINE LEUK ESTERASE NEGATIVE (NEGATIVE); URINE NITRITE NEGATIVE (NEGATIVE); URINE PROTEIN 1+ (NEGATIVE); URINE RBC 8 /uL (0-23.9); URINE UROBILINOGEN 0.2 mg/dL (0.2-1.0); URINE WBC 4 /uL (0-25.8)
[2021-12-08 19:40] LABS: BASO % 0.2 % (0-2.0); EOS % 1.9 % (0-4.5); HEMATOCRIT 47.1 % (35.4-49); HEMOGLOBIN 16.1 GM/dL (11.7-16.9); LYMPH % 26.1 % (8-40); MCH 30.4 pg (25.7-33.7); MCHC 34.2 g/dl (32.0-35.9); MEAN CELL VOLUME 88.9 fl (80-96); MEAN PLT VOLUME 8.6 fl (7.5-11.1); MONO % 6.6 % (3.8-10.2); NEUT % 65.2 % (42.8-82.8); PLATELET COUNT 260 10^3/uL (134-434); RDW 13.3 % (11.9-15.9); WHITE BLOOD COUNT 7.1 K/mm3 (4.0-10.0)
[2021-12-08 20:05] LABS: ALBUMIN 4.3 g/dl (3.4-5.0)
[2021-12-08 20:09] LABS: CREATININE 0.8 mg/dL (0.55-1.3)
[2021-12-08 20:10] LABS: BILIRUBIN,TOTAL 0.8 mg/dL (0.2-1); TOT PROT 7.9 g/dl (6.4-8.2)
[2021-12-08] MEDS ORDERED: SODIUM CHLORIDE 0.9% 500 ML INFUS.BAG IV ONE (20:34)
[2021-12-08 22:06] VITALS: BP 121/71; PULSE 78
== END 2021-12-08 23:08 | disposition home or self-care (01) ==
LOC: JER 16:41
PROC: 3E033GC Introduction of Other Therapeutic Substance into Peripheral Vein, Percutaneous Approach (ICD-10-PCS; principal; 2021-12-08)
PROC: 3E0F7GC Introduction of Other Therapeutic Substance into Respiratory Tract, Via Natural or Artificial Opening (ICD-10-PCS; 2021-12-08)
DX: J45.21 Mild intermittent asthma with (acute) exacerbation (principal); R10.31 Right lower quadrant pain
CPT/HCPCS: 36415; 74177-TC; 80053; 81003; 83690; 85025; 87086; 99285-25; Q9967

== ENCOUNTER 2021-12-27 11:03 | Emergency (ER) | payer OTHER ==
[2021-12-27 11:36] VITALS: BMI 29.5
[2021-12-27] MEDS: ALBUTEROL SO4 2.5/IPRATROPIUM 0.5 INH SOL 3 ML VIAL.NEB. NEB SCH ×2 (12:34→12:35)
[2021-12-27] MEDS ORDERED: DEXAMETHASONE SOD PHOSPHATE 10 MG/1 ML VIAL IM ONE (13:15)
[2021-12-27] MEDS ORDERED: ONDANSETRON 4 MG/2 ML VIAL IM ONE (13:20)
[2021-12-27] MEDS ORDERED: ONDANSETRON 4 MG/2 ML VIAL ONE (13:25)
[2021-12-27] MEDS ORDERED: DEXAMETHASONE SOD PHOSPHATE 10 MG/1 ML VIAL ONE (13:26)
[2021-12-27 16:01] VITALS: BP 127/68; PULSE 89; TEMP 98.6
== END 2021-12-27 16:01 | disposition home or self-care (01) ==
LOC: JER 11:03
PROC: 3E023GC Introduction of Other Therapeutic Substance into Muscle, Percutaneous Approach (ICD-10-PCS; principal; 2021-12-27)
PROC: 3E0F7GC Introduction of Other Therapeutic Substance into Respiratory Tract, Via Natural or Artificial Opening (ICD-10-PCS; 2021-12-27)
DX: J45.901 Unspecified asthma with (acute) exacerbation (principal)
CPT/HCPCS: 0241U-QW; 71046-TC-FY; 99284-25; J1100

== ENCOUNTER 2022-08-22 21:17 | Emergency (ER) | payer OTHER ==
[2022-08-22 21:31] VITALS: BP 115/78; PULSE 91; RESP 20; TEMP 98.2; BMI 29.5
== END 2022-08-22 22:15 | disposition left against medical advice (07) ==
LOC: JER 21:17
DX: S09.90XA Unspecified injury of head, initial encounter (principal); W22.8XXA Striking against or struck by other objects, initial encounter
CPT/HCPCS: 99281-25